=== PATIENT | female | born 1975 | race Caucasian/White ===

== ENCOUNTER 2021-11-27 23:18 | Emergency (ER) | payer OTHER ==
[~2021-11-27] VITALS: Ht 160 cm; Wt 68.0 kg
[2021-11-27 23:25] VITALS: BP 139/77
--- NOTE | 2021-11-27 23:34 | NUR ---
[employer] AT [employer] BEDSIDE
== END 2021-11-27 23:51 | disposition home or self-care (01) ==
LOC: ER 23:18
DX: H57.89 Other specified disorders of eye and adnexa (principal)
CPT/HCPCS: 86706; 86803; 87340; 87806

== ENCOUNTER 2023-07-01 10:32 | Emergency (ER) | payer BC, OTHER ==
[~2023-07-01] VITALS: Ht 160 cm; Wt 71.7 kg
[~2023-07-01 10:32] MED LIST: AMLO-212 PO
[2023-07-01 10:46] VITALS: BP 130/89; TEMP 100.2
[2023-07-01 12:16] VITALS: O2SAT 98
== END 2023-07-01 12:17 | disposition home or self-care (01) ==
LOC: ER 10:32
DX: U07.1 COVID-19 (principal)
CPT/HCPCS: 99283; 87426; C9803

== ENCOUNTER 2023-10-10 20:24 | Emergency (ER) | payer BC, OTHER ==
[~2023-10-10] VITALS: Ht 160 cm; Wt 72.6 kg
[2023-10-10] MEDS ORDERED: CT SWABBABLE VALVE TRANS SET 1 EA INFUS.SET MC ONE (20:49)
[2023-10-10] MEDS ORDERED: IV NS 0.9% 250 ML IV ONE (20:49)
[2023-10-10] MEDS ORDERED: IOHEXOL-350 100 ML VIAL IV ONE (20:49)
[2023-10-10 22:05] VITALS: BP 127/71; TEMP 98.7; O2SAT 98
== END 2023-10-10 22:10 | disposition home or self-care (01) ==
LOC: ER 20:35
DX: D25.9 Leiomyoma of uterus, unspecified (principal)
CPT/HCPCS: 99285; 74178; J7050; Q9967

== ENCOUNTER 2023-11-21 09:02 | Inpatient (IN) | payer BC, OTHER ==
[~2023-11-21] VITALS: Ht 160 cm; Wt 71.2 kg
[2023-11-21] MEDS ORDERED: POTASSIUM CHLORIDE 10 MEQ/50 ML PREMIXED IVPB FOR PERIPHERAL LINE IV ONE (09:03)
[2023-11-21] MEDS ORDERED: BUPIVACAINE 0.5 % PF 150 MG/30 ML VIAL ONE (09:26)
[2023-11-21] MEDS ORDERED: ANESTHESIA TRAY IN PYXIS 1 EA TRAY MC ONE (09:26)
[2023-11-21] MEDS ORDERED: BACITRACIN ZINC OINT (15 GM) 15 GM TUBE TP ONE (09:27)
[2023-11-21] MEDS ORDERED: LIDOCAINE 1%-EPI 1:100,000 20 ML VIAL ONE (09:27)
[2023-11-21 09:33] LABS: PREGNANCY TEST URINE QUAL NEGATIVE (NEGATIVE)
[2023-11-21 09:50] LABS: BASOPHILS % (AUTO) 0.4 % (0.0-2.0); EOSINOPHILS # (AUTO) 0.5 K/uL (0.0-0.7); EOSINOPHILS % (AUTO) 6.4 % (0.0-6.0); HEMATOCRIT 41 % (33-45); HEMOGLOBIN 13.9 g/dL (11.5-14.8); LYMPHOCYTES # (AUTO) 1.8 K/uL (0.8-4.8); LYMPHOCYTES % (AUTO) 25.1 % (20.0-44.0); MEAN CORPUSCULAR HEMOGLOBIN 28 PG (26.0-33.0); MEAN CORPUSCULAR HGB CONC 34 g/dl (31.0-36.0); MEAN CORPUSCULAR VOLUME 82 fL (82-100); MONOCYTES # (AUTO) 0.5 K/uL (0.1-1.30); MONOCYTES % (AUTO) 7.4 % (2.0-12.0); NEUTROPHILS # (AUTO) 4.3 K/uL (1.8-8.9); NEUTROPHILS % (AUTO) 60.7 % (43.0-81.0); PLATELET COUNT (AUTO) 285 K/uL (150-450); RED BLOOD CELL COUNT(AUTO) 4.97 MIL/uL (4.0-5.2); WHITE BLOOD COUNT (AUTO) 7.1 K/uL (4.3-11.0)
[2023-11-21] MEDS ORDERED: FENTANYL PF 250MCG/5ML AMPUL ONE (10:07)
[2023-11-21] MEDS ORDERED: ROCURONIUM BROMIDE 50 MG/5 ML ONE (10:08)
[2023-11-21 10:15] LABS: ALBUMIN 3.4 g/dL (3.4-5.0); BILIRUBIN,TOTAL 0.4 mg/dL (0.2-1.0); CREATININE 0.7 mg/dL (0.6-1.3); TOTAL PROTEIN, SERUM 7.7 g/dL (6.4-8.2)
[2023-11-21] MEDS ORDERED: HEMOSTATIC MATRIX 8 ML 1 EACH PAD MC ONE (11:52)
[2023-11-21] MEDS ORDERED: CELLULOSE,OXIDIZED 1 EA PACK MC ONE (11:52)
[2023-11-21] MEDS ORDERED: FENTANYL PF 100MCG/2ML AMPUL ONE (12:24)
[2023-11-21] MEDS ORDERED: MEPERIDINE25 MG SYR 25 MG/ML VIAL ONE (12:48)
[2023-11-21] MEDS ORDERED: ONDANSETRON HCL/PF 4 MG/2 ML VIAL IV PRN (13:00)
[2023-11-21] MEDS ORDERED: oxyCODONE/APAP (5/325 MG) 1 UDTAB TABLET PO PRN ×2 (13:00)
[2023-11-21] MEDS ORDERED: ONDANSETRON HCL/PF 4 MG/2 ML VIAL ONE (13:07)
[2023-11-21 13:20] VITALS: BP 108/70; TEMP 98.1; O2SAT 98
[2023-11-21] MEDS: HYDROMORPHONE INJ 2 MG/ML DISP.SYRIN IV PRN (13:42)
[2023-11-21] MEDS: IV LR 1000 ML 1,000 ML IV PRN (13:44)
[2023-11-21] MEDS ORDERED: ZOLPIDEM TARTRATE 5 MG TABLET PO PRN (14:00)
[2023-11-21] MEDS ORDERED: ONDANSETRON HCL/PF 4 MG/2 ML VIAL IVP PRN (14:00)
[2023-11-21] MEDS ORDERED: MAG HYDROX/AL HYDROX/SIMETH 30 ML UDC PO PRN (14:00)
[2023-11-21] MEDS ORDERED: Z GUARD REMEDY 4 OZ OINT TP PRN (14:00)
[2023-11-21] MEDS ORDERED: MAGNESIUM HYDROXIDE 30 ML UDC PO PRN (14:00)
[2023-11-21] MEDS ORDERED: POTA10TA11 PO (14:35)
[2023-11-21] MEDS ORDERED: VITAMIN E PO (14:35)
[2023-11-21] MEDS ORDERED: FOLI0.4T6 PO (14:35)
[2023-11-21] MEDS ORDERED: ELAG150T PO (14:35)
[2023-11-21] MEDS ORDERED: AMLO-213 PO (14:35)
[2023-11-21] MEDS ORDERED: VITA1TAB56 PO (14:35)
[2023-11-21] MEDS ORDERED: FERR325T28 PO (14:35)
[2023-11-21 16:00] VITALS: BP 104/56; TEMP 97.9; O2SAT 95
[2023-11-21 20:00] VITALS: BP 108/68; TEMP 98.9; O2SAT 95
[2023-11-22 06:44] LABS: BASOPHILS % (AUTO) 0.3 % (0.0-2.0); EOSINOPHILS # (AUTO) 0.2 K/uL (0.0-0.7); EOSINOPHILS % (AUTO) 2.9 % (0.0-6.0); HEMATOCRIT 34 % (33-45); HEMOGLOBIN 11.4 g/dL (11.5-14.8); LYMPHOCYTES # (AUTO) 1.3 K/uL (0.8-4.8); LYMPHOCYTES % (AUTO) 17.9 % (20.0-44.0); MEAN CORPUSCULAR HEMOGLOBIN 28 PG (26.0-33.0); MEAN CORPUSCULAR HGB CONC 34 g/dl (31.0-36.0); MEAN CORPUSCULAR VOLUME 82 fL (82-100); MONOCYTES # (AUTO) 0.6 K/uL (0.1-1.30); MONOCYTES % (AUTO) 7.9 % (2.0-12.0); PLATELET COUNT (AUTO) 249 K/uL (150-450); RED BLOOD CELL COUNT(AUTO) 4.09 MIL/uL (4.0-5.2); RED CELL DISTRIBUTION WIDTH 13.4 % (11.5-15.0); WHITE BLOOD COUNT (AUTO) 7.1 K/uL (4.3-11.0)
[2023-11-22 07:00] LABS: CALCIUM, SERUM 7.9 mg/dL (8.5-10.1); CREATININE 0.7 mg/dL (0.6-1.3); MAGNESIUM 1.9 mg/dL (1.8-2.4); PHOSPHORUS 2.8 mg/dL (2.5-4.9); POTASSIUM 3.2 mmol/L (3.5-5.1)
[2023-11-22 07:30] VITALS: BP 123/70; TEMP 98.6; O2SAT 94
[2023-11-22] MEDS ORDERED: IV NS 0.9% 250 ML IV ONE (09:28)
[2023-11-22] MEDS ORDERED: CT SWABBABLE VALVE TRANS SET 1 EA INFUS.SET MC ONE (09:28)
[2023-11-22] MEDS ORDERED: IOHEXOL-350 100 ML VIAL IV ONE (09:28)
[2023-11-22] MEDS: POTASSIUM CHLORIDE 20 MEQ TAB.PRT.SR PO SCH (10:00)
[2023-11-22] MEDS: ACETAMINOPHEN 325 MG TABLET PO PRN (13:58)
[2023-11-22 16:00] VITALS: BP 121/73; TEMP 99.7; O2SAT 90
[2023-11-22 20:00] VITALS: BP 124/84; TEMP 98.2; O2SAT 95
[2023-11-23 08:02] LABS: POTASSIUM 3.5 mmol/L (3.5-5.1)
[2023-11-23 08:03] LABS: MAGNESIUM 1.7 mg/dL (1.8-2.4)
[2023-11-23 08:04] LABS: CALCIUM, SERUM 7.6 mg/dL (8.5-10.1); CREATININE 0.6 mg/dL (0.6-1.3)
[2023-11-23 08:05] LABS: PHOSPHORUS 2.5 mg/dL (2.5-4.9)
[2023-11-23 08:46] VITALS: BP 152/77; TEMP 100.3; O2SAT 93
[2023-11-23 10:25] LABS: BASOPHILS % (AUTO) 0.4 % (0.0-2.0); EOSINOPHILS # (AUTO) 0.4 K/uL (0.0-0.7); EOSINOPHILS % (AUTO) 5.8 % (0.0-6.0); HEMATOCRIT 33 % (33-45); HEMOGLOBIN 11.2 g/dL (11.5-14.8); LYMPHOCYTES # (AUTO) 0.8 K/uL (0.8-4.8); LYMPHOCYTES % (AUTO) 10.3 % (20.0-44.0); MEAN CORPUSCULAR HEMOGLOBIN 28 PG (26.0-33.0); MEAN CORPUSCULAR HGB CONC 34 g/dl (31.0-36.0); MEAN CORPUSCULAR VOLUME 82 fL (82-100); MONOCYTES # (AUTO) 0.7 K/uL (0.1-1.30); MONOCYTES % (AUTO) 9.3 % (2.0-12.0); NEUTROPHILS # (AUTO) 5.5 K/uL (1.8-8.9); NEUTROPHILS % (AUTO) 74.2 % (43.0-81.0); PLATELET COUNT (AUTO) 255 K/uL (150-450); RED BLOOD CELL COUNT(AUTO) 3.97 MIL/uL (4.0-5.2); RED CELL DISTRIBUTION WIDTH 13.5 % (11.5-15.0); WHITE BLOOD COUNT (AUTO) 7.5 K/uL (4.3-11.0)
[2023-11-23] MEDS: MAGNESIUM OXIDE 400 MG TABLET PO ONE (10:50)
[2023-11-23] MEDS: AMOX/CLAVULANATE 875 MG TABLET PO SCH (10:50)
[2023-11-23] MEDS: AMLODIPINE BESYLATE 10 MG TABLET PO SCH (10:54)
[2023-11-23 11:17] LABS: APPEARANCE,URINE CLEAR (CLEAR); BILIRUBIN,URINE NEGATIVE (NEGATIVE); BLOOD, URINE 2+ Ery/uL (NEGATIVE); COLOR,URINE YELLOW (YELLOW); KETONES,URINE NEGATIVE (NEGATIVE); LEUKOCYTE ESTERASE ,URINE NEGATIVE (NEGATIVE); NITRITE, URINE NEGATIVE (NEGATIVE); PH,URINE 6.5 (5.0-8.0); PROTEIN,URINE NEGATIVE (NEGATIVE); UGLUCOSE NEGATIVE (NEGATIVE); UROBILINOGEN,URINE 0.2 EU/dL (0.2)
[2023-11-23 11:38] LABS: ADD URINE CULTURE NO; BACTERIA,URINE 1+ /HPF (None Seen); SQUAMOUS EPITHELIAL CELL,UR 0-2 /HPF (None Seen); WBC,URINE 0-2 /HPF (0-3)
[2023-11-23 12:08] LABS: CANCER AG, 15-3 15.2 U/mL (0.0-25.0)
[2023-11-23] MEDS: VITAMIN E 400 UNIT CAPSULE PO SCH (13:49)
[2023-11-23] MEDS: VITAMIN B COMP W-C 1 TAB TABLET PO SCH (13:49)
[2023-11-23 15:57] VITALS: BP 124/85; TEMP 98.4; O2SAT 91
[2023-11-23 20:00] VITALS: BP_SYST 132; BP_SYST 140; BP_DIAS 77; BP_DIAS 83; TEMP 98.8; O2SAT 93
[2023-11-24 06:57] LABS: BASOPHILS % (AUTO) 0.3 % (0.0-2.0); EOSINOPHILS # (AUTO) 0.4 K/uL (0.0-0.7); EOSINOPHILS % (AUTO) 6.2 % (0.0-6.0); HEMATOCRIT 34 % (33-45); HEMOGLOBIN 11.8 g/dL (11.5-14.8); LYMPHOCYTES # (AUTO) 1.1 K/uL (0.8-4.8); MEAN CORPUSCULAR HEMOGLOBIN 28 PG (26.0-33.0); MEAN CORPUSCULAR HGB CONC 35 g/dl (31.0-36.0); MEAN CORPUSCULAR VOLUME 82 fL (82-100); MONOCYTES # (AUTO) 0.6 K/uL (0.1-1.30); NEUTROPHILS % (AUTO) 70.5 % (43.0-81.0); PLATELET COUNT (AUTO) 298 K/uL (150-450); RED BLOOD CELL COUNT(AUTO) 4.21 MIL/uL (4.0-5.2); RED CELL DISTRIBUTION WIDTH 13.3 % (11.5-15.0); WHITE BLOOD COUNT (AUTO) 7.1 K/uL (4.3-11.0)
[2023-11-24 07:13] LABS: CALCIUM, SERUM 8.3 mg/dL (8.5-10.1); CREATININE 0.6 mg/dL (0.6-1.3); MAGNESIUM 2.1 mg/dL (1.8-2.4); PHOSPHORUS 3.5 mg/dL (2.5-4.9); POTASSIUM 3.1 mmol/L (3.5-5.1)
[2023-11-24 08:24] VITALS: BP 119/78; TEMP 98.5; O2SAT 99
[2023-11-24] MEDS: FERROUS SULFATE (325 MG) 325 MG/TAB TABLET PO SCH (08:34)
[2023-11-24] MEDS: FOLIC ACID 1 MG TABLET PO SCH (08:34)
[2023-11-24 08:43] VITALS: BP 119/78
[2023-11-24] MEDS: POTASSIUM CHLORIDE 20 MEQ TAB.PRT.SR PO ONE (09:35)
[2023-11-24] MEDS ORDERED: AMOX1TAB16 PO (11:18)
== END 2023-11-24 12:45 | disposition home or self-care (01) | DRG 743 ==
LOC: DS 09:02 → MED 12:31
PROVIDERS: ADMIT Student in an Organized Health Care Education/Training Program; ATTEND Student in an Organized Health Care Education/Training Program
PROC: 0UT90ZZ Resection of Uterus, Open Approach (ICD-10-PCS; principal; 2023-11-21)
PROC: 0UT20ZZ Resection of Bilateral Ovaries, Open Approach (ICD-10-PCS; 2023-11-21)
PROC: 0UT70ZZ Resection of Bilateral Fallopian Tubes, Open Approach (ICD-10-PCS; 2023-11-21)
DX: D25.9 Leiomyoma of uterus, unspecified (principal); N80.00 Endometriosis of the uterus, unspecified; N73.6 Female pelvic peritoneal adhesions (postinfective); E83.42 Hypomagnesemia; E87.6 Hypokalemia; F17.200 Nicotine dependence, unspecified, uncomplicated; Z98.891 History of uterine scar from previous surgery; N80.103 Endometriosis of bilateral ovaries, unspecified depth; C50.411 Malignant neoplasm of upper-outer quadrant of right female breast; Z17.0 Estrogen receptor positive status [ER+]; D64.9 Anemia, unspecified; N92.0 Excessive and frequent menstruation with regular cycle; Z83.3 Family history of diabetes mellitus; Z80.7 Family history of other malignant neoplasms of lymphoid, hematopoietic and related tissues; Z80.3 Family history of malignant neoplasm of breast; I10 Essential (primary) hypertension
CPT/HCPCS: 36415; 71045-TC; 71270-TC; 74178; 80048-TC; 80053-TC; 81001; 82378; 82607-TC; 82728-TC; 83540-TC; 83735-TC; 84100-TC; 84703-TC; 85025-TC; 86300; 86850-TC; 87040-TC; 88305-TC; 97110-TC; 97116-TC; 97530-TC; A4223; A6209; G0378; J0461; J0690; J1170; J1885; J2175; J2405; J2704; J3010; J3480; J3490; J7050; J7120; Q9967

== ENCOUNTER 2024-02-01 06:07 | Inpatient (IN) | payer BC, OTHER ==
[~2024-02-01] VITALS: Ht 160 cm; Wt 72.6 kg
[~2024-02-01 06:07] MED LIST changes: -AMLO-212 PO; +AMLO-213 PO; +AMOX1TAB16 PO; +ELAG150T PO; +FERR325T28 PO; +FOLI0.4T6 PO; +POTA10TA11 PO; +VITA1TAB56 PO; +VITAMIN E PO
[2024-02-01] MEDS ORDERED: ANESTHESIA TRAY IN PYXIS 1 EA TRAY MC ONE (06:51)
[2024-02-01] MEDS ORDERED: LIDOCAINE 1% INJ 50 ML MDV IJ ONE (06:51)
[2024-02-01] MEDS ORDERED: BUPIVACAINE 0.5 % PF 150 MG/30 ML VIAL ONE (06:51)
[2024-02-01] MEDS ORDERED: FENTANYL PF 250MCG/5ML AMPUL ONE (07:30)
[2024-02-01] MEDS ORDERED: ROCURONIUM BROMIDE 50 MG/5 ML ONE (07:31)
[2024-02-01] MEDS ORDERED: GENTAMICIN 80 MG/2 ML VIAL ONE ×2 (08:12→11:14)
[2024-02-01] MEDS ORDERED: VANCOMYCIN 1 GM VIAL ONE ×2 (08:12→11:14)
[2024-02-01] MEDS ORDERED: METHYLENE BLUE 10 ML VIAL ONE (08:39)
[2024-02-01] MEDS ORDERED: SEVOFLURANE 250 ML BOTTLE IH ONE (10:34)
[2024-02-01] MEDS ORDERED: ONDANSETRON HCL/PF 4 MG/2 ML VIAL IVP PRN ×2 (12:00→16:00)
[2024-02-01] MEDS ORDERED: SENNOSIDES 8.6 MG TABLET PO PRN (12:00)
[2024-02-01] MEDS ORDERED: ACETAMINOPHEN 325 MG TABLET PO PRN ×2 (12:00→16:00)
[2024-02-01] MEDS ORDERED: FENTANYL PF 100MCG/2ML AMPUL ONE (12:55)
[2024-02-01] MEDS: HYDROMORPHONE 1 MG/1 ML DISP.SYRIN IV PRN (13:53)
[2024-02-01] MEDS ORDERED: BACL20TA PO (14:34)
[2024-02-01] MEDS ORDERED: CYAN100096 PO (14:34)
[2024-02-01] MEDS ORDERED: ANAS1TAB50 PO (14:34)
[2024-02-01] MEDS: HYDROCODONE/APAP 5/325MG TABLET PO PRN (15:01)
[2024-02-01] MEDS: IV PREMIX D5 1/2NS + KCL 1,000 ML IV SCH (15:48)
[2024-02-01] MEDS ORDERED: ZOLPIDEM TARTRATE 5 MG TABLET PO PRN (16:00)
[2024-02-01] MEDS ORDERED: MAG HYDROX/AL HYDROX/SIMETH 30 ML UDC PO PRN (16:00)
[2024-02-01] MEDS ORDERED: MAGNESIUM HYDROXIDE 30 ML UDC PO PRN (16:00)
[2024-02-01] MEDS ORDERED: Z GUARD REMEDY 4 OZ OINT TP PRN (16:00)
[2024-02-01] MEDS ORDERED: BACLOFEN (10 MG) 10 MG TABLET PO PRN (16:30)
[2024-02-01] MEDS: CYANOCOBALAMIN 500 MCG TABLET PO SCH (17:19)
[2024-02-01] MEDS: AMLODIPINE BESYLATE 10 MG TABLET PO SCH (17:19)
[2024-02-01] MEDS: FOLIC ACID 1 MG TABLET PO SCH (17:19)
[2024-02-01] MEDS: ANASTROZOLE 1 MG TABLET PO SCH (18:03)
[2024-02-01 20:00] VITALS: BP 138/79; TEMP 98.6; O2SAT 98
[2024-02-01] MEDS: CEFAZOLIN 2 GM in IV D5W 100 ML IV SCH (20:50)
[2024-02-01] MEDS ORDERED: CEFAZOLIN 1 GM VIAL IM SCH (21:00)
[2024-02-02] VITALS (7 sets, daily range): BP systolic 127–167; BP diastolic 57–92; TEMP 97.2–98.6; O2SAT 96–100
[2024-02-02 07:27] LABS: BASOPHILS % (AUTO) 0.4 % (0.0-2.0); EOSINOPHILS # (AUTO) 0.2 K/uL (0.0-0.7); EOSINOPHILS % (AUTO) 2.9 % (0.0-6.0); HEMATOCRIT 35 % (33-45); HEMOGLOBIN 11.9 g/dL (11.5-14.8); LYMPHOCYTES # (AUTO) 1.4 K/uL (0.8-4.8); LYMPHOCYTES % (AUTO) 20.6 % (20.0-44.0); MEAN CORPUSCULAR HEMOGLOBIN 28 PG (26.0-33.0); MEAN CORPUSCULAR HGB CONC 34 g/dl (31.0-36.0); MEAN CORPUSCULAR VOLUME 84 fL (82-100); MONOCYTES # (AUTO) 0.7 K/uL (0.1-1.30); MONOCYTES % (AUTO) 10.1 % (2.0-12.0); NEUTROPHILS # (AUTO) 4.5 K/uL (1.8-8.9); PLATELET COUNT (AUTO) 254 K/uL (150-450); RED BLOOD CELL COUNT(AUTO) 4.22 MIL/uL (4.0-5.2); RED CELL DISTRIBUTION WIDTH 12.8 % (11.5-15.0); WHITE BLOOD COUNT (AUTO) 6.9 K/uL (4.3-11.0)
[2024-02-02] MEDS: PANTOPRAZOLE 40 MG TABLET.DR PO SCH (07:41)
[2024-02-02 07:48] LABS: CALCIUM, SERUM 8.7 mg/dL (8.5-10.1); CREATININE 0.6 mg/dL (0.6-1.3); MAGNESIUM 1.9 mg/dL (1.8-2.4); PHOSPHORUS 3.9 mg/dL (2.5-4.9); POTASSIUM 3.5 mmol/L (3.5-5.1)
[2024-02-02 08:48] LABS: THYROID STIMULATING HORMONE 1.74 uIU/mL (0.358-3.74)
[2024-02-02] MEDS ORDERED: CEPH-570 PO (09:03)
[2024-02-02] MEDS: ACETAMINOPHEN 325 MG TABLET PO SCH (10:06)
[2024-02-02] MEDS: IBUPROFEN 600 MG TABLET PO SCH (10:07)
[2024-02-03] VITALS: BP_SYST 108; BP_SYST 144; BP_DIAS 58; BP_DIAS 71; TEMP 97.9; O2SAT 95; O2SAT 98
[2024-02-03 04:00] VITALS: BP 171/77; TEMP 97.6; O2SAT 96
[2024-02-03 07:00] VITALS: BP 129/111; TEMP 97.9; O2SAT 97
[2024-02-03 09:04] VITALS: BP 129/90
[2024-02-03] MEDS ORDERED: HYDR-4303 PO (10:13)
[2024-02-03] MEDS ORDERED: HYDR-4209 PO (11:39)
== END 2024-02-03 15:37 | disposition home or self-care (01) | DRG 581 ==
LOC: DS 06:07 → MED 13:44 → TELE 02-02 06:08 → MED 02-03 09:57
PROC: 0HBV0ZZ Excision of Bilateral Breast, Open Approach (ICD-10-PCS; principal; 2024-02-01)
PROC: 07B50ZX Excision of Right Axillary Lymphatic, Open Approach, Diagnostic (ICD-10-PCS; 2024-02-01)
PROC: 0HHV0NZ Insertion of Tissue Expander into Bilateral Breast, Open Approach (ICD-10-PCS; 2024-02-01)
PROC: 3E0102A Introduction of Anti-Infective Envelope into Subcutaneous Tissue, Open Approach (ICD-10-PCS; 2024-02-01)
DX: C50.911 Malignant neoplasm of unspecified site of right female breast (principal); I10 Essential (primary) hypertension; N64.4 Mastodynia; Z87.891 Personal history of nicotine dependence; D25.9 Leiomyoma of uterus, unspecified; Z80.3 Family history of malignant neoplasm of breast; Z80.7 Family history of other malignant neoplasms of lymphoid, hematopoietic and related tissues
CPT/HCPCS: 36415; 80048-TC; 80061-TC; 83735-TC; 84100-TC; 84443-TC; 85025-TC; 86850-TC; 87081-TC; A4223; A9541; C1713; C1789; G0378; J0690; J1170; J1580; J2704; J3010; J3370; J3490; J7030; J7060; Q9968

== ENCOUNTER 2024-08-06 05:51 | Day surgery (SDC) | payer BC, OTHER ==
[~2024-08-06 05:51] MED LIST changes: -AMOX1TAB16 PO; +ANAS1TAB50 PO; +BACL20TA PO; +CEPH-570 PO; +CYAN100096 PO; -ELAG150T PO; -FERR325T28 PO; +HYDR-4209 PO; -VITA1TAB56 PO; -VITAMIN E PO
[2024-08-06 06:44] LABS: PREGNANCY TEST URINE QUAL NEGATIVE (NEGATIVE)
[2024-08-06] MEDS ORDERED: MORPHINE SULFATE INJ 4 MG/ML DISP.SYRIN ONE (07:14)
[2024-08-06] MEDS ORDERED: ROCURONIUM BROMIDE 50 MG/5 ML ONE (07:14)
[2024-08-06] MEDS ORDERED: FENTANYL PF 250MCG/5ML AMPUL ONE (07:14)
[2024-08-06] MEDS ORDERED: SEVOFLURANE 250 ML BOTTLE IH ONE (08:02)
[2024-08-06] MEDS ORDERED: GENTAMICIN 80 MG/2 ML VIAL ONE (08:02)
[2024-08-06] MEDS ORDERED: VANCOMYCIN 1 GM VIAL ONE (08:02)
[2024-08-06] MEDS ORDERED: MEPERIDINE HCL/PF 50 MG/ML DISP.SYRIN IV PRN (09:30)
[2024-08-06] MEDS ORDERED: BLOOD SUGAR DIAGNOSTIC 1 EACH STRIP VI ONE (09:30)
[2024-08-06] MEDS ORDERED: MORPHINE SULFATE INJ 10 MG/ML DISP.SYRIN IV PRN (09:30)
[2024-08-06] MEDS ORDERED: FENTANYL PF 100MCG/2ML AMPUL IV PRN (09:30)
[2024-08-06] MEDS ORDERED: ONDANSETRON HCL/PF 4 MG/2 ML VIAL IVP PRN (09:30)
[2024-08-06] MEDS ORDERED: METOCLOPRAMIDE HCL 10 MG/2 ML VIAL IV PRN (09:30)
[2024-08-06] MEDS ORDERED: MEPERIDINE25 MG SYR 25 MG/ML VIAL ONE (09:57)
[2024-08-06] MEDS ORDERED: FENTANYL PF 100MCG/2ML AMPUL ONE (10:18)
== END 2024-08-06 13:00 | disposition home or self-care (01) ==
LOC: DS 05:51
PROVIDERS: ATTEND Surgery
DX: Z45.812 Encounter for adjustment or removal of left breast implant (principal); Z45.811 Encounter for adjustment or removal of right breast implant; I10 Essential (primary) hypertension; E11.9 Type 2 diabetes mellitus without complications; E78.2 Mixed hyperlipidemia; Z79.84 Long term (current) use of oral hypoglycemic drugs; Z79.899 Other long term (current) drug therapy; Z85.3 Personal history of malignant neoplasm of breast; Z90.89 Acquired absence of other organs; Z98.891 History of uterine scar from previous surgery; Z90.49 Acquired absence of other specified parts of digestive tract; Z90.13 Acquired absence of bilateral breasts and nipples; Z83.3 Family history of diabetes mellitus; Z82.49 Family history of ischemic heart disease and other diseases of the circulatory system
CPT/HCPCS: 11970; 19380; 82962; 84703; 88300; C1789; J0690; J1580; J2175; J2704; J2765; J3010; J3370; J3490; J7030; J2270

== ENCOUNTER 2025-01-03 06:16 | Outpatient (CLI) | payer BC, OTHER ==
[2025-01-03 07:10] LABS: BASOPHILS % (AUTO) 0.7 % (0.0-2.0); EOSINOPHILS # (AUTO) 0.2 K/uL (0.0-0.7); EOSINOPHILS % (AUTO) 2.9 % (0.0-6.0); HEMATOCRIT 44 % (33-45); HEMOGLOBIN 14.8 g/dL (11.5-14.8); LYMPHOCYTES # (AUTO) 2.8 K/uL (0.8-4.8); LYMPHOCYTES % (AUTO) 37.2 % (20.0-44.0); MEAN CORPUSCULAR HEMOGLOBIN 28 PG (26.0-33.0); MEAN CORPUSCULAR HGB CONC 34 g/dl (31.0-36.0); MEAN CORPUSCULAR VOLUME 85 fL (82-100); MONOCYTES # (AUTO) 0.5 K/uL (0.1-1.30); NEUTROPHILS # (AUTO) 3.9 K/uL (1.8-8.9); NEUTROPHILS % (AUTO) 52.2 % (43.0-81.0); PLATELET COUNT (AUTO) 295 K/uL (150-450); RED BLOOD CELL COUNT(AUTO) 5.21 MIL/uL (4.0-5.2); RED CELL DISTRIBUTION WIDTH 13.3 % (11.5-15.0); WHITE BLOOD COUNT (AUTO) 7.4 K/uL (4.3-11.0)
[2025-01-03 07:56] LABS: ALBUMIN 4.5 g/dL (3.4-5.0); BILIRUBIN,TOTAL 0.7 mg/dL (0.2-1.0); CALCIUM, SERUM 9.8 mg/dL (8.5-10.1); CREATININE 0.7 mg/dL (0.6-1.3); POTASSIUM 3.6 mmol/L (3.5-5.1); TOTAL PROTEIN, SERUM 8.3 g/dL (6.4-8.2)
[2025-01-04 03:07] LABS: VIT D, 25-HYDROXY 62.8 ng/mL (30.0-100.0)
[2025-01-04 06:08] LABS: CANCER AG, 15-3 20.6 U/mL (0.0-25.0)
== END 2025-01-03 23:59 | disposition home or self-care (01) ==
LOC: LAB 06:16
PROVIDERS: ATTEND Internal Medicine Hematology & Oncology
DX: C50.011 Malignant neoplasm of nipple and areola, right female breast (principal); E55.9 Vitamin D deficiency, unspecified; R97.0 Elevated carcinoembryonic antigen [CEA]; E11.9 Type 2 diabetes mellitus without complications; D64.9 Anemia, unspecified; Z13.228 Encounter for screening for other metabolic disorders
CPT/HCPCS: 36415; 80053-TC; 82306; 82378; 85025-TC; 86300

== ENCOUNTER 2025-01-30 05:51 | Outpatient (CLI) | payer BC, OTHER ==
[2025-01-30 08:26] LABS: CALCIUM, SERUM 10.0 mg/dL (8.5-10.1); CREATININE 0.7 mg/dL (0.6-1.3); SODIUM SERUM 142.0 mmol/L (136-145); UREA NITROGEN, BLOOD 11.0 mg/dL (7-18)
== END 2025-01-30 23:59 | disposition home or self-care (01) ==
LOC: LAB 05:51
PROVIDERS: ATTEND Internal Medicine Hematology & Oncology
DX: M81.0 Age-related osteoporosis without current pathological fracture (principal)
CPT/HCPCS: 36415; 80048-TC

== ENCOUNTER → 2025-03-10 | Emergency (ER) | payer BC, OTHER ==
[~2025-03-10] VITALS: Ht 160 cm; Wt 73.5 kg
[~2025-03-10] MED LIST changes: +CT SWABBABLE VALVE TRANS SET 1 EA INFUS.SET MC ONE; +IOHEXOL-350 100 ML VIAL IV ONE; +IV NS 0.9% 250 ML IV ONE; +NITR100C6 PO; +NITROFURANTOIN/MONOHYDRATE MACROCRYSTALS 100 MG CAPSULE ONE
[2025-03-10 03:16] LABS: PLATELET COUNT (AUTO) 344 K/uL (150-450); RED BLOOD CELL COUNT(AUTO) 4.66 MIL/uL (4.0-5.2); RED CELL DISTRIBUTION WIDTH 13.2 % (11.5-15.0); WHITE BLOOD COUNT (AUTO) 6.3 K/uL (4.3-11.0)
[2025-03-10 03:26] LABS: CALCIUM, SERUM 9.6 mg/dL (8.5-10.1); CREATININE 0.9 mg/dL (0.6-1.3); SODIUM SERUM 140.0 mmol/L (136-145); UREA NITROGEN, BLOOD 11.0 mg/dL (7-18)
[2025-03-10 03:32] LABS: ASPARTATE AMINOTRANSFERASE 23.0 U/L (15-37); TOTAL PROTEIN, SERUM 7.9 g/dL (6.4-8.2)
[2025-03-10 03:33] LABS: INR 0.9 (0.91-1.10)
[2025-03-10 03:38] LABS: APPEARANCE,URINE CLEAR (CLEAR); BLOOD, URINE 2+ Ery/uL (NEGATIVE); LEUKOCYTE ESTERASE ,URINE 2+ (NEGATIVE); NITRITE, URINE NEGATIVE (NEGATIVE); UGLUCOSE NEGATIVE (NEGATIVE)
[2025-03-10 03:46] LABS: ADD URINE CULTURE YES
[2025-03-10] MEDS: NITROFURANTOIN/MONOHYDRATE MACROCRYSTALS 100 MG CAPSULE PO ONE (05:32)
[2025-03-10 05:34] VITALS: BP 120/75; TEMP 98; O2SAT 98
[2025-03-12 06:10] LABS: CANCER AG, 15-3 22.0 U/mL (0.0-25.0); CARCINOEMBRYONIC ANTIGEN (CEA) 2.0 ng/mL (0.0-4.7)
== END | disposition home or self-care (01) ==
LOC: ER 02:28
DX: N39.0 Urinary tract infection, site not specified (principal); M25.552 Pain in left hip; R94.31 Abnormal electrocardiogram [ECG] [EKG]; M25.431 Effusion, right wrist; I10 Essential (primary) hypertension; Z79.811 Long term (current) use of aromatase inhibitors; Z79.899 Other long term (current) drug therapy; Z85.3 Personal history of malignant neoplasm of breast; Z90.49 Acquired absence of other specified parts of digestive tract; Z90.710 Acquired absence of both cervix and uterus; Z86.79 Personal history of other diseases of the circulatory system; Z87.39 Personal history of other diseases of the musculoskeletal system and connective tissue
CPT/HCPCS: 99285; 71260; 93971; 93005; 73110; 74177; 85025; 80048; 87077; 87086; 80076; 87186; 81001; 36415; 85730; 86300; 82378; J7050; Q9967